=== PATIENT | female | born 1960 | race Caucasian/White ===

== ENCOUNTER → 2024-02-07 16:29 | Outpatient (REF) | payer BC, SELFPAY | LOC: WDC 16:29 | PROVIDERS: ATTENDING PHYSICIAN Family Medicine | DX: Z12.31 Encounter for screening mammogram for malignant neoplasm of breast (principal) | CPT/HCPCS: 77063; 77067 ==

== ENCOUNTER 2024-04-09 11:04 | Emergency (ER) | payer BC, SELFPAY ==
[2024-04-09 11:12] VITALS: BP 176/99
--- NOTE | 2024-04-09 11:28 | ED.GENMED ---
History of Present Illness
General
Chief Complaint: Chest Pain
Source: patient
Exam Limitations: none
Time Seen by Provider: 04/09/24 11:28
Nursing documentation reviewed up to this point in time: agreed with
History of Present Illness
History of Present Illness:
64-year-old female with history HLD, HTA, migraines, kidney stones presents stating evangelical she had 4 episodes of 'waves of chest and left jaw pain over a 10-minute period' at 10:30 AM. It was not associated with lightheadedness, sweating, nausea or
any other symptoms. She is asymptomatic now.
Past History
Past History
ED Past Medical History: HTN, Hypercholesterolemia and Other (Kidney stones, migraines)
ED Past Surgical History: , Gynecological (Hysterectomy) and Orthopedic
Social History
Tobacco: Non-smoker
Alcohol: Occasional
Personal:
Living: with family
Family History
Family History: Other (Brother CA and stroke age 55, mother CA age 62)
Review of Systems
Review of Systems
Allergies reviewed?: Yes
All Other Systems: ROS reviewed and negative except as documented in HPI and ROS
Constitutional: Denies fever or fatigue
Respiratory: Denies trouble breathing
Cardiac: Reports chest pain; Denies diaphoresis or palpitations
ABD/GI: Denies abdominal pain, nausea, vomiting or diarrhea
: Denies dysuria or difficulty voiding
Musculoskeletal: Reports no symptoms
Neurological: Reports no symptoms
Phy Exam
Physical Exam
Physical Exam:
GENERAL: No acute distress. A&Ox3.
CONSTITUTIONAL: Afebrile.
EYES: clear, conjunctivae normal
ENMT: moist mucus membranes
RESPIRATORY: Regular respirations, nonlabored, lungs clear.
CARDIOVASCULAR: Regular rate and rhythm, no murmurs, no rubs.
GI: Soft, nontender, normal BS
MUSCULOSKELETAL: Moves with ease. Well perfused.
SKIN: Warm, dry, pink
PSYCH: Normal mood and affect. Well kept, interactive and appropriate
NEUROLOGIC: Awake, alert and oriented. No focal neurological deficits
Scores
Heart Score for Chest Pain Patients
STEMI patient?: Not applicable
Course
Orders/Labs/Results
Orders:
Orders
04/09/24 11:05
Electrocardiogram (*1) Urgent
Reason for Study: Chest Pain
EKG- Treatment ONCE
04/09/24 11:56
Complete Blood Count/With Diff Urgent
Comprehensive Metabolic Panel Urgent
Troponin I Urgent
04/09/24 12:59
CR Chest - 2 Views Urgent
Comment:
Reason For Exam: Chest and jaw pain
04/09/24 14:58
Troponin I Urgent
Abnormal Lab Results
04/09/24
11:56
WBC 4.0 L 10^3/uL
(4.8-10.8)
RDW 11.4 L %
(11.5-14.5)
Monocytes % 10.6 H %
(1.7-9.3)
Chloride 94 L mmol/L
(98-107)
Carbon Dioxide 33 H mmol/L
(22-30)
ALT 39 H U/L
(0-35)
Albumin 5.2 H g/dl
(3.5-5.0)
04/09/24 11:56
04/09/24 11:56
Vital Signs
Initial and Last Documented VS:
Initial Vital Signs
Temp Pulse Resp BP Pulse Ox
98.5 F 71 17 176/99 99
04/09/24 11:12 04/09/24 11:12 04/09/24 11:12 04/09/24 11:12 04/09/24 11:12
Last Documented Vital Signs
Temp Pulse Resp BP Pulse Ox
98.5 F 69 18 138/74 98
04/09/24 11:12 04/09/24 15:00 04/09/24 15:00 04/09/24 15:00 04/09/24 15:00
MDM/Problems Addressed
Differential Diagnosis Includes:
ACS, GERD
MDM/Problems Addressed:
64-year-old female with history HLD, HTA, migraines, kidney stones presents stating evangelical she had 4 episodes of 'waves of chest and left jaw pain over a 10-minute period' at 10:30 AM. It was not associated with lightheadedness, sweating, nausea or
any other symptoms. She is asymptomatic now.
EKG: NSR
1:00 PM:
CBC normal
CMP with no clinically significant abnormality
Troponin #1 normal
Pt updated with results
CXR: NAD
3:30 PM:
Troponin #2 is negative
Patient has remained asymptomatic, stable for discharge
Due to strong family history, Referred to chest pain hotline
*EKG
EKG Intrepretation Date: 04/09/24
Interpretation: normal
Heart Rate: 71
Rate: normal
Rhythm: sinus
[place]: normal axis
Interval: normal interval
QRS Pattern: normal QRS
Ischemia: no ischemia
*Critical Care Note
Total Time (30-74mins, 75-104mins- exclusive of procedures): Not Applicable
ED Attending Note
-
Portions of this chart may have been created with voice recognition software.� Occasional wrong word or��sound alike� substitutions may have occurred due to the inherent limitations of voice recognition software.
Discharge Plan
Departure
Patient Disposition: Home (Routine Discharge)
Date of Disposition: 04/09/24
Time of Disposition: 15:34
Patient with high blood pressure during this ER visit?: No
Condition: Good
Discharge Problem:
Atypical chest pain
Instructions: Chest Pain That Is Not Caused by the Heart (DC), Acid Reflux and GERD in Adults (DC), Chest Pain CBC Follow Up
Prescriptions:
No Action
cetirizine [Zyrtec] 10 MG tablet
10 mg PO DAILY
venlafaxine [Effexor XR] 150 MG capsule,extended release 24hr
75 mg PO DAILY
methocarbamol 750 MG tablet
500 mg PO Q6H
oxycodone 5 MG tablet
0.5 mg PO Q6HPRN PRN (Reason: back pain)
rosuvastatin [Crestor] 10 MG tablet
5 mg PO R Q48H
acetaminophen [Tylenol] 325 MG capsule
650 mg PO Q6HPRN PRN (Reason: back pain)
cholecalciferol (vitamin D3) 2,000 UNIT tablet
1,000 unit PO DAILY
potassium citrate [Urocit-K 15] 15 MEQ tablet extended release
15 meq PO TID
chlorthalidone 25 MG tablet
25 mg PO DAILY
Referrals:
Hank Cohen, DO [Family Provider] - As needed
Activity Restrictions/Additional Instructions:
As we discussed, nothing worrisome in your workup here today
Someone from the cardiology group will reach out to you within the next couple of days to make an appointment for more thorough cardiac evaluation.
Interventions
Interventions:
*Risk Screen - Suicide Last Done: 04/09/24 11:15
*General Assessment Last Done: 04/09/24 11:15
*Neglect/Abuse Screening Last Done: 04/09/24 11:15
ED- Fall Risk Assessment Last Done: 04/09/24 12:45
*ED COVID-19 Vaccine History Last Done: 04/09/24 11:15
*Nursing Disposition Last Done: 04/09/24 16:18
ED- Cardiac Assessment Last Done: 04/09/24 12:45
Discharge Date and Time
Discharge Date/Time: 04/09/24 16:20
Print Language: ROMANIAN
[2024-04-09 11:36] VITALS: BMI 24.8
[2024-04-09 12:00] VITALS: BP 143/64
[2024-04-09 12:06] LABS: % Basophils 0.8 % (0-2); % Lymphocytes 30.1 % (20.5-51.1); % Monocytes 10.6 % (1.7-9.3); % Neutrophils 57.5 % (42.2-75.2); Absolute Lymphocytes 1.2 10^3/uL (1.2-3.4); Absolute Monocytes 0.4 10^3/uL (0.1-0.6); Absolute Neutrophils 2.3 10^3/uL (1.4-6.5); Hematocrit 37.7 % (37.0-47.0); Hemoglobin 13.4 g/dL (12.0-16.0); Mean Corp Hgb Conc. 35.5 g/dL (33.0-37.0); Mean Corpuscular Volume 87.3 fL (81.0-99.0); Mean Platelet Volume 9.3 fL (7.4-10.4); Nucleated Red Blood Cells % 0 %; Platelet Count 242 10^3/uL (130-400); Red Blood Cell Count 4.32 10^6/uL (4.20-5.40); Red Cell Dist. Width 11.4 % (11.5-14.5)
[2024-04-09 12:22] LABS: ALT (SGPT) 39 U/L (0-35); AST (SGOT) 31 U/L (14-36); Albumin 5.2 g/dl (3.5-5.0); Alkaline Phosphatase 68 U/L (38-126); Blood Urea Nitrogen 15 mg/dl (7-17); Calcium 10.2 mg/dl (8.4-10.2); Carbon Dioxide 33 mmol/L (22-30); Chloride 94 mmol/L (98-107); Estimated Creatinine Clearance 54 ml/min; Glucose 94 mg/dl (70-99); Potassium 4.5 mmol/L (3.5-5.1); Sodium 135 mmol/L (135-145); Total Bilirubin 0.8 mg/dl (0.2-1.3); Total Protein 7.4 g/dl (6.3-8.2); eGFR > 60.00
[2024-04-09 12:34] LABS: Troponin I < 0.012 ng/ml
[2024-04-09 13:00] VITALS: BP 143/74
[2024-04-09 15:00] VITALS: BP 138/74
[2024-04-09 15:30] LABS: Troponin I < 0.012 ng/ml
== END 2024-04-09 16:20 | disposition home or self-care (01) ==
LOC: EMR 11:04
PROVIDERS: Registered Nurse; EMERGENCY PHYSICIAN Student in an Organized Health Care Education/Training Program; FAMILY PHYSICIAN Family Medicine
DX: R07.89 Other chest pain (principal); E78.00 Pure hypercholesterolemia, unspecified; I10 Essential (primary) hypertension; Z82.3 Family history of stroke; Z82.49 Family history of ischemic heart disease and other diseases of the circulatory system; Z87.442 Personal history of urinary calculi; Z90.710 Acquired absence of both cervix and uterus
CPT/HCPCS: 99283; 71046; 80053; 84484; 85025; 93005

== ENCOUNTER → 2024-04-28 09:58 | Outpatient (REF) | payer BC, SELFPAY | LOC: RAD 09:58 | PROVIDERS: ATTENDING PHYSICIAN Student in an Organized Health Care Education/Training Program | DX: R07.89 Other chest pain (principal) | CPT/HCPCS: 75574; Q9967 ==

== ENCOUNTER 2024-05-16 06:34 | Day surgery (SDC) | payer BC, SELFPAY ==
[2024-05-09 10:17] VITALS: BMI 23.7
[2024-05-09 11:07] LABS: % Eosinophils 1.8 % (0-6); % Immature Granulocytes 0.3 % (0-0.5); % Lymphocytes 27.6 % (20.5-51.1); % Monocytes 10.5 % (1.7-9.3); % Neutrophils 58.8 % (42.2-75.2); Absolute Eosinophils 0.1 10^3/uL (0-0.7); Absolute Lymphocytes 1.1 10^3/uL (1.2-3.4); Absolute Monocytes 0.4 10^3/uL (0.1-0.6); Absolute Neutrophils 2.3 10^3/uL (1.4-6.5); Hematocrit 37.9 % (37.0-47.0); Hemoglobin 13.1 g/dL (12.0-16.0); Mean Corp Hgb Conc. 34.6 g/dL (33.0-37.0); Mean Corpuscular Hgb 31.1 pg (27.0-31.0); Mean Platelet Volume 9.4 fL (7.4-10.4); Nucleated Red Blood Cells % 0 %; Platelet Count 268 10^3/uL (130-400); Red Blood Cell Count 4.21 10^6/uL (4.20-5.40); Red Cell Dist. Width 11.8 % (11.5-14.5); White Blood Cell Count 3.9 10^3/uL (4.8-10.8)
[2024-05-09 12:00] LABS: ALT (SGPT) 52 U/L (0-35); AST (SGOT) 40 U/L (14-36); Alkaline Phosphatase 66 U/L (38-126); Blood Urea Nitrogen 16 mg/dl (7-17); Calcium 10.2 mg/dl (8.4-10.2); Carbon Dioxide 29 mmol/L (22-30); Chloride 95 mmol/L (98-107); Estimated Creatinine Clearance 64 ml/min; Glucose 63 mg/dl (70-99); Potassium 4.1 mmol/L (3.5-5.1); Sodium 135 mmol/L (135-145); Total Bilirubin 0.7 mg/dl (0.2-1.3); Total Protein 7.2 g/dl (6.3-8.2); eGFR > 60.00
[2024-05-16] VITALS (12 sets, daily range): BP systolic 114–159; BP diastolic 71–93
[2024-05-16] MEDS: NSS 176 ML IV (07:11)
[2024-05-16 08:34] LABS: ACT-LR - POC 331 Seconds (116-155)
--- NOTE | 2024-05-16 09:11 | ITS.CL.PN ---
[facility] - Procedure Note
Procedure
Procedure Note:
CARDIAC CATHETERIZATION REPORT
Date of Procedure: 05/16/2024
Referring: Dr. Hernesto Pisano MD, PhD
Indication: unstable angina, positive cardiac CT angio
PROCEDURE(S)
1. left heart catheterization
2. coronary angiography
3. iFR OM1
ACCESS: 6F right radial artery (closure: radial band)
CATHETERS
1. 6F JR4
2. 6F JL3.5
3. 6F EBU3.5 guide
MODERATE SEDATION: 30 minutes of moderate sedation was utilized. An independent medical billing and coding instructor was present to assist with and help manage the patient's level of consciousness and physiologic status.
ULTRASOUND GUIDED VASCULAR ACCESS (right radial artery): Ultrasound was utilized for vascular access. The vessel was visualized under ultrasound and noted to be patent. An image of the vessel was stored permanently in the patient's medical record.
Under direct ultrasound guidance, vascular access was obtained using a modified Seldinger technique and a 6 Macanese sheath was placed.
HEMODYNAMIC DATA
LV 130/9 (EDP 18) mmHg
AO 138/78 (mean 106) mmHg
CORONARY ANGIOGRAPHY
Dominance: Right
LM: Large with mild proximal narrowing
LAD: Large vessel giving rise to a small D1, moderate caliber D2, and small D3 before wrapping around the apex. There is a 80% stenosis in the proximal LAD involving the takeoffs of D1 and D2. There is also 70% stenosis of the ostial to proximal
D2. There are otherwise mild luminal irregularities.
LCx: Moderate caliber vessel giving rise to a single branching moderate caliber OM1. There is an eccentric 50% stenosis in the proximal aspect of the upper branch of the OM1 which was further interrogated by iFR. There are otherwise mild luminal
irregularities.
RCA: Large vessel giving rise to a moderate caliber RPDA and multiple small RPL branches. There are trivial luminal irregularities.
iFR of OM1
An Omni wire was flushed and zeroed outside the body and then advanced to the left main. The wire introducer was removed and the catheter flushed with saline, after which pressure of the wire and guide were normalized. The wire was advanced to the
distal aspect of the upper branch of OM1 and iFR recorded at 0.97. iFR pullback was performed and iFR appropriately normalized to ~1.0, confirming lack of wire drift.
RADIATION: dose to 39 mGy; DAP 14.5 Gy*cm2; fluoroscopy time 7.7 min
CONCLUSIONS
1. Single-vessel obstructive coronary artery disease with Leyva 111 disease of the LAD diagonal bifurcation.
2. Mildly elevated LVEDP and no aortic stenosis.
RECOMMENDATIONS
1. Continue aspirin and start [id number] given statin intolerance.
2. Patient centered discussion of revascularization options: PCI of LAD +/- diagonal branch versus robotic WATTS to LAD.
3. No vigorous activity until revascularization
Copy to: Dr. Hank Cohen DO (PCP)
Signed: Hernesto Hernandez MD, PhD
== END 2024-05-16 15:15 | disposition home or self-care (01) ==
LOC: CATH 06:34
PROVIDERS: ATTENDING PHYSICIAN Student in an Organized Health Care Education/Training Program; FAMILY PHYSICIAN Family Medicine
DX: I25.110 Atherosclerotic heart disease of native coronary artery with unstable angina pectoris (principal); I10 Essential (primary) hypertension; E78.5 Hyperlipidemia, unspecified; G43.909 Migraine, unspecified, not intractable, without status migrainosus; M19.90 Unspecified osteoarthritis, unspecified site; F41.9 Anxiety disorder, unspecified; F32.A Depression, unspecified; Z79.82 Long term (current) use of aspirin; Z79.899 Other long term (current) drug therapy; Z98.1 Arthrodesis status
CPT/HCPCS: 93799; 99152; 99153; 36415; 76937; 80053; 85025; 85347; 93005; 93458; C1769; C1894; Q9967

== ENCOUNTER 2024-05-25 06:16 | Day surgery (SDC) | payer BC, SELFPAY ==
[2024-05-25] VITALS (18 sets, daily range): BP systolic 115–148; BP diastolic 63–85; BMI 23.2
[2024-05-25] MEDS: PLAVIX 600 MG PO (06:47)
[2024-05-25] MEDS: NSS 173 ML IV (06:55)
[2024-05-25 08:23] LABS: ACT-LR - POC 255 Seconds (116-155)
--- NOTE | 2024-05-25 08:55 | ITS.CL.PN ---
[facility] [employer] - Procedure Note
Procedure
Procedure Note:
CARDIAC CATHETERIZATION REPORT
Date of Procedure: 05/25/2024
Referring: Dr. Hernesto Hernandez MD, PhD
Indication: episode of unstable anginal, severe single vessel CAD
PROCEDURE(S)
1. left heart catheterization
2. IVUS of LAD
3. PCI with YAMILE to LAD
ACCESS: 6F right radial artery (closure: radial band)
CATHETERS:
1. 6F EBU 3.5 guide catheter
2. 6F pigtail
MODERATE SEDATION: 45 minutes of moderate sedation was utilized. An independent medical lab scientist was present to assist with and help manage the patient's level of consciousness and physiologic status.
ULTRASOUND GUIDED VASCULAR ACCESS (right radial artery): Ultrasound was utilized for vascular access. The vessel was visualized under ultrasound and noted to be patent. An image of the vessel was stored permanently in the patient's medical record.
Under direct ultrasound guidance, vascular access was obtained using a modified Seldinger technique and a 6 Vietnamese sheath was placed.
HEMODYNAMIC DATA
LV 171/15 (EDP 24) mmHg
AO 172/85 (mean 118) mmHg
IVUS-guided PCI with YAMILE to LAD
The patient was loaded with 600 mg Plavix. The left main was engaged with a EBU3.5 guide catheter. Heparin was given to achieve ACT>300. A Runthrough wire was placed in the distal LAD and a BMW wire placed in the diagonal branch for protection.
Initial lesion preparation was performed with a 2.0x12 semicompliant balloon with full expansion. On angiography there was adequate lesion modification and patency of the side branch. IVUS was performed demonstrating a 3.5 mm EEL-EEL diameter
proximally and distally with non-concentric calcification at the lesion site. Stenting was performed with a 3.5x28 mm Xience Skypoint YAMILE from normal to normal. Angiography demonstrated patency of the side branch and mild underexpansion at the
lesion site. The protection wire was removed and the rewiring was performed through the stent struts. Post dilation was performed throughout the stent with a 3.25 mm noncompliant balloon to nominal pressure at the edges and high pressure elsewhere.
Repeat IVUS demonstrated full stent expansion and apposition and no edge dissections. The side branch wire was removed. Final angiographic result was excellent with full stent expansion, TIMI3 flow in the side branch, and no complications. The wire
and guide were removed and LVEDP measured with a pigtail catheter to guide post-procedure fluid management. The radial access site was closed with a TR band. The patient was taken to the cath recovery unit in stable condition and family updated.
RADIATION: dose 788.90 mGy; DAP 33.4171 Gy*cm2; fluoroscopy time 15.0 min
CONCLUSIONS
1. Successful IVUS-guided PCI with YAMILE to LAD (3.0x28 mm Xience Skypoint post dilated with a 3.25 mm NC balloon)
2. Moderately elevated LVEDP and no aortic stenosis.
RECOMMENDATIONS
1. Aggressive secondary prevention of coronary artery disease
2. DAPT with Plavix for 6 months, then ASA for life
3. Cardiac rehab
Copy to: Dr. Hernesto Hernandez MD, PhD (improvement coordinator); Dr. Hank Cohen DO (PCP)
Signed: Hernesto Hernandez MD, PhD
[2024-05-25 09:55] LABS: ACT-LR - POC > 397 Seconds (116-155)
[2024-05-25] MEDS: TYLENOL 650 MG PO (11:05)
--- NOTE | 2024-05-25 13:46 | W.PN.UPDATE ---
Update Note
Progress Note Update
64 yo WF s/p PCI LAD x 1 YAMILE (same day). She denies cp, sob, keyona diet, voiding, EKG SB/SR no ST changes, R rad site c/d/i no HT, good pulse. She will be on DAPT ASA/Plavix. Cardiac rehab c/s. She will f/u [facility] in 2 weeks. She is for d/c home
after 2pm.
CONCLUSIONS
1. Successful IVUS-guided PCI with YAMILE to LAD (3.0x28 mm Xience Skypoint post dilated with a 3.25 mm NC balloon)
2. Moderately elevated LVEDP and no aortic stenosis.
== END 2024-05-25 14:10 | disposition home or self-care (01) ==
LOC: CATH 06:16
PROVIDERS: ATTENDING PHYSICIAN Student in an Organized Health Care Education/Training Program; FAMILY PHYSICIAN Family Medicine
DX: I25.119 Atherosclerotic heart disease of native coronary artery with unspecified angina pectoris (principal); Z79.82 Long term (current) use of aspirin; Z79.02 Long term (current) use of antithrombotics/antiplatelets; I10 Essential (primary) hypertension; E78.5 Hyperlipidemia, unspecified; G43.909 Migraine, unspecified, not intractable, without status migrainosus; M19.90 Unspecified osteoarthritis, unspecified site; F32.A Depression, unspecified; F41.9 Anxiety disorder, unspecified
CPT/HCPCS: 92978; 99152; 99153; 76937; 85347; 93005; 93458; C1725; C1753; C1769; C1874; C1894; C9600; Q9967

== ENCOUNTER → 2024-11-24 14:46 | Outpatient (REF) | payer BC, SELFPAY | LOC: RAD 14:46 | PROVIDERS: ATTENDING PHYSICIAN Internal Medicine Nephrology; FAMILY PHYSICIAN Family Medicine | DX: N20.0 Calculus of kidney (principal) | CPT/HCPCS: 76775 ==

== ENCOUNTER → 2025-02-07 17:10 | Outpatient (REF) | payer BC, SELFPAY | LOC: WDC 17:10 | PROVIDERS: ATTENDING PHYSICIAN Family Medicine | DX: Z12.31 Encounter for screening mammogram for malignant neoplasm of breast (principal) | CPT/HCPCS: 77063; 77067 ==